=== PATIENT | female | born 1970 | race Caucasian/White ===

== ENCOUNTER → 2016-12-25 | Outpatient (CLI) | payer OTHER ==
--- NOTE | 2016-12-25 12:11 | RAD ---
Bilateral knees, 6 views, 12/25/2016: History: Pain, osteoarthritis There is moderate narrowing of both knee joints medially with subchondral sclerosis and moderate marginal spurring. There is moderate spurring at the patellofemoral articulations bilaterally. No fracture or dislocation is identified. No large joint effusion is seen. IMPRESSION: 1. Moderate bilateral degenerative change with dominant involvement of the medial compartments of both knee joints. 2. No acute bony abnormality is detected.
== END | disposition home or self-care (01) ==
LOC: DXRAD 07:57
PROVIDERS: ATTEND Orthopaedic Surgery
DX: M17.0 Bilateral primary osteoarthritis of knee (principal); M25.561 Pain in right knee
CPT/HCPCS: 73564